=== PATIENT | male | born 2000 | race American Indian/Alaskan Native ===

== ENCOUNTER 2021-01-03 08:01 | Emergency (ER) | payer MEDICAID ==
--- NOTE | 2021-01-03 08:23 | Emergency Department Report ---
ED General Adult HPI - General Chief complaint: Seizure Stated complaint: SEIZURE Time Seen by Provider: 01/03/21 08:15 Source: patient, EMS Mode of arrival: Stretcher Limitations: No Limitations - History of Present Illness Initial comments: Patient is a [id number] male who presents to the emergency department for evaluation of generalized tonic-clonic seizure this morning. Patient states he has not taken his Trileptal x2 to 3 days, is unsure of dose. Patient denies head injury, denies substance abuse, denies recent fever or illness. - Related Data Previous Rx's Medication Instructions Recorded Last Taken Type OXcarbazepine [Trileptal] 1,200 mg PO BID 30 Days #60 01/03/21 Unknown Rx Allergies Allergy/AdvReac Type Severity Reaction Status Date / Time No Known Allergies Allergy Unverified 05/20/16 09:22 ED Review of Systems ROS: Stated complaint: SEIZURE Other details as noted in HPI Comment: All other systems reviewed and negative ED Past Medical Hx - Past Medical History Previous Medical History?: Yes Hx Diabetes: Yes Hx Seizures: Yes - Social History Smoking Status: Never Smoker Substance Use Type: None - Medications Home Medications: Home Medications Medication Instructions Recorded Confirmed Last Taken Type OXcarbazepine [Trileptal] 1,200 mg PO BID 30 Days #60 01/03/21 Unknown Rx ED Physical Exam - General Limitations: No Limitations General appearance: alert, in no apparent distress - Head Head exam: Present: atraumatic, normocephalic - Eye Eye exam: Present: normal appearance - ENT ENT exam: Present: mucous membranes moist - Neck Neck exam: Present: normal inspection - Respiratory Respiratory exam: Present: normal lung sounds bilaterally. Absent: respiratory distress - Cardiovascular Cardiovascular Exam: Present: regular rate, normal rhythm - GI/Abdominal GI/Abdominal exam: Present: soft, normal bowel sounds - Rectal Rectal exam: Present: deferred - Extremities Exam Extremities exam: Present: normal inspection - Back Exam Back exam: Present: normal inspection - Neurological Exam Neurological exam: Present: alert, oriented X3 - Psychiatric Psychiatric exam: Present: normal affect, normal mood - Skin Skin exam: Present: warm, dry, intact, normal color. Absent: rash ED Course Vital Signs 01/03/21 01/03/21 01/03/21 08:18 08:30 08:31 Temperature 98 F Pulse Rate 96 H 94 H Respiratory 20 18 Rate Blood Pressure Blood Pressure 180/90 [Right] O2 Sat by Pulse 96 97 Oximetry 01/03/21 01/03/21 01/03/21 08:46 09:00 09:16 Temperature Pulse Rate 87 96 H 97 H Respiratory 20 20 22 Rate Blood Pressure 98/55 Blood Pressure [Right] O2 Sat by Pulse 100 98 Oximetry 01/03/21 09:42 Temperature 98.2 F Pulse Rate 77 Respiratory 16 Rate Blood Pressure Blood Pressure 112/70 [Right] O2 Sat by Pulse 99 Oximetry - Reevaluation(s) Reevaluation #1: 01/03/21 08:22 Previous records reviewed, patient seen most recently in 2015 for same complaint, was taking Trileptal 1200 mg twice daily at that time, consequently given 1 dose of same. ED Medical Decision Making - Lab Data Result diagrams: 01/03/21 08:28 01/03/21 08:28 Labs 01/03/21 01/03/21 08:28 08:28 WBC 12.5 H RBC 4.95 Hgb 14.4 Hct 42.1 MCV 85 MCH 29 MCHC 34 RDW 13.3 Plt Count 241 Lymph % (Auto) 7.6 L [place] % (Auto) 8.7 H Eos % (Auto) 0.2 Baso % (Auto) 0.5 Lymph # (Auto) 1.0 L [place] # (Auto) 1.1 H Eos # (Auto) 0.0 Baso # (Auto) 0.1 Seg Neutrophils % 83.0 H Seg Neutrophils # 10.4 H Sodium 137 Potassium 4.0 Chloride 97.2 L Carbon Dioxide 24 Anion Gap 20 BUN 13 Creatinine 1.2 Estimated GFR > 60 BUN/Creatinine Ratio 11 Glucose 268 H Calcium 9.1 Vital Signs 01/03/21 01/03/21 01/03/21 08:18 08:30 08:31 Temperature 98 F Pulse Rate 96 H 94 H Respiratory 20 18 Rate Blood Pressure Blood Pressure 180/90 [Right] O2 Sat by Pulse 96 97 Oximetry 01/03/21 01/03/21 01/03/21 08:46 09:00 09:16 Temperature Pulse Rate 87 96 H 97 H Respiratory 20 20 22 Rate Blood Pressure 98/55 Blood Pressure [Right] O2 Sat by Pulse 100 98 Oximetry 01/03/21 09:42 Temperature 98.2 F Pulse Rate 77 Respiratory 16 Rate Blood Pressure Blood Pressure 112/70 [Right] O2 Sat by Pulse 99 Oximetry Critical care attestation.: If time is entered above; I have spent that time in minutes in the direct care of this critically ill patient, excluding procedure time. ED Disposition Clinical Impression: Generalized seizure, Noncompliance with medication regimen Disposition: TO HOME OR SELFCARE Is pt being admited?: No Condition: Stable Instructions: Epilepsy, [id number], Seizure, Adult Additional Instructions: Follow-up with primary care doctor in 1 to 2 days for reevaluation. Return to the emergency department for worsening symptoms. Prescriptions: OXcarbazepine [Trileptal] 1,200 mg PO BID 30 Days #60 Referrals: PRIMARY CARE, [Primary Care Provider] - 3-5 Days
[2021-01-03] MEDS ORDERED: OXcarbazepine 300 MG TAB PO SCH (08:30)
[2021-01-03 08:52] LABS: Basophils # (Auto) 0.1 K/mm3 (0.0-0.1); Basophils % (Auto) 0.5 % (0.0-1.8); Eosinophils % (Auto) 0.2 % (0.0-4.3); Hematocrit 42.1 % (35.5-45.6); Hemoglobin 14.4 gm/dl (11.8-15.2); Lymphocytes % (Auto) 7.6 % (13.4-35.0); Mean Corpuscular HGB Conc 34 % (32-34); Mean Corpuscular Volume 85 fl (84-94); Monocytes # (Auto) 1.1 K/mm3 (0.0-0.8); Monocytes % (Auto) 8.7 % (0.0-7.3); Platelet Count 241 K/mm3 (140-440); Red Blood Count 4.95 M/mm3 (3.65-5.03); Red Cell Distribution Width 13.3 % (13.2-15.2)
[2021-01-03 09:05] LABS: BUN/Creatinine Ratio 11; Blood Urea Nitrogen 13 mg/dL (9-20); Calcium 9.1 mg/dL (8.4-10.2); Hemolysis Index 18
[2021-01-03 09:43] VITALS: BP 112/70
== END 2021-01-03 09:52 | disposition home or self-care (01) ==
LOC: ED 08:01
DX: G40.89 Other seizures (principal); Z91.14 Patient's other noncompliance with medication regimen; E11.9 Type 2 diabetes mellitus without complications; Z79.899 Other long term (current) drug therapy
CPT/HCPCS: 36415; 80048; 85025